=== PATIENT | male | born 1995 | race Caucasian/White ===

== ENCOUNTER 2019-10-28 11:18 | Emergency (ER) | payer OTHER ==
[~2019-10-28] VITALS: Ht 182.9 cm; Wt 74.8 kg
[2019-10-28] MEDS ORDERED: TYLENOL WITH CO1 TA1 PO (13:24)
[2019-10-28] MEDS ORDERED: HYDROXYZINE HCL25 M2 PO (13:24)
[2019-10-28] MEDS ORDERED: MELOXICAM7.5 MG PO (13:24)
[2019-10-28 13:55] VITALS: BP 173/68
== END 2019-10-28 13:57 | disposition home or self-care (01) ==
LOC: M.ERS 11:18
DX: S60.812A Abrasion of left wrist, initial encounter (principal); M94.0 Chondrocostal junction syndrome [Tietze]; M79.642 Pain in left hand; F43.0 Acute stress reaction; V49.49XA Driver injured in collision with other motor vehicles in traffic accident, initial encounter; Y93.89 Activity, other specified; Y92.89 Other specified places as the place of occurrence of the external cause; Y99.8 Other external cause status

== ENCOUNTER 2021-03-06 19:40 | Emergency (ER) | payer OTHER ==
[~2021-03-06] VITALS: Ht 182.9 cm; Wt 72.6 kg
[~2021-03-06 19:40] MED LIST: HYDROXYZINE HCL25 M2 PO; MELOXICAM7.5 MG PO; TYLENOL WITH CO1 TA1 PO
[2021-03-06] MEDS ORDERED: NORCO5 PO ×2 (20:35→20:42)
[2021-03-06] MEDS ORDERED: CLINDAMYCIN HC300 MG PO (20:35)
[2021-03-06] MEDS ORDERED: ONDANSETRON ODT4 MG PO (20:35)
[2021-03-06 20:54] VITALS: BP 132/70
== END 2021-03-06 20:55 | disposition home or self-care (01) ==
LOC: M.ERS 19:40
DX: S01.511A Laceration without foreign body of lip, initial encounter (principal); S09.8XXA Other specified injuries of head, initial encounter; Z88.0 Allergy status to penicillin; W22.8XXA Striking against or struck by other objects, initial encounter; Y93.64 Activity, baseball; Y92.89 Other specified places as the place of occurrence of the external cause; Y99.8 Other external cause status

== ENCOUNTER 2021-05-08 10:16 | Emergency (ER) | payer OTHER ==
[~2021-05-08 10:16] MED LIST changes: +CLINDAMYCIN HC300 MG PO; +NORCO5 PO; +ONDANSETRON ODT4 MG PO
== END 2021-05-08 10:35 | disposition left against medical advice (07) ==
LOC: M.ERS 10:16
DX: M54.50 Low back pain, unspecified (principal); Z53.21 Procedure and treatment not carried out due to patient leaving prior to being seen by health care provider